=== PATIENT | male | born 1970 | race Caucasian/White ===

== ENCOUNTER 2017-06-22 11:27 | Day surgery (SDC) | payer OTHER ==
[2017-06-19 16:24] LABS: HEMATOCRIT 43.5 % (40.0-51.0); HEMOGLOBIN 14.3 g/dL (13.6-17.8)
[2017-06-19 16:38] LABS: BUN (BLOOD UREA NITROGEN) 16 MG/DL (6-23); CALCIUM, SERUM 8.7 MG/DL (8.5-10.4); CHLORIDE, SERUM 106 MMOL/L (96-112); CO2 (CARBON DIOXIDE) 30 MMOL/L (24-34); CREATININE 1.16 MG/DL (0.70-1.30); GFR AFRICAN AMERICAN 88 ML/MIN (>=60); GFR NON AFRICAN AMERICAN 76 ML/MIN (>=60); GLUCOSE, SERUM 77 MG/DL (60-99); POTASSIUM, SERUM 3.8 MMOL/L (3.5-5.3); SODIUM, SERUM 141 MMOL/L (135-148)
[~2017-06-22] VITALS: Ht 175.3 cm; Wt 89.8 kg
--- NOTE | ~2017-06-22 | OP ---
Record Of Operation [facility] [address] [place]. [address] NAME: TUTU GONZALEZ : 74 STATUS : [facility] UNIT#: [id number] AGE: 47 ADM/REG DATE : 06/22/17 MR#: [id number] REPORT SERV DATE: 06/22/17 DICTATED BY: DIONTE FISH JR. DATE: 06/22/17 REPORT STATUS : Draft TRANSCRIBED BY: NICOLAS DATE: 06/22/17 DATE OF PROCEDURE: ELECTROMECHANICAL ENGINEER: Megan Rehman. PROCEDURE: Anal fistulotomy with excision of anal polyp. PREOPERATIVE DIAGNOSIS: Recurrent anal fissure. POSTOPERATIVE DIAGNOSIS: Recurrent anal fissure. ANESTHESIA: General. INDICATIONS: The patient has had multiple anal procedures in the past he reveals with persistent pain and drainage. Examination under anesthesia with appropriate procedure is indicated. FINDINGS: With the patient in a prone amando-knife position, the anorectal area was examined. There was a fistulous tract extending to the 12 o'clock position that was straight into the anorectal area. There was also a polyp at the end of this. The tract was opened, it did involve the superficial fibers of the sphincter with a polyp at the end of this that was excised and the fistula was unroofed. No other significant findings were encountered. DESCRIPTION OF PROCEDURE: With adequate general anesthesia, the patient was placed in the prone amando-knife position. The rectum was dilated 4 fingerbreadths. The anoscope was introduced. The bladder findings. Rectal probe was placed through the external opening and this extended to the anorectal area where there was induration and a polyp. Polyp were excised and this was submitted to Pathology. The fistulous tract was opened with electrocautery and bleeding was controlled with electrocautery. Then, a Gelfoam pack was placed. The patient tolerated the procedure well and left the operating room in satisfactory condition. ESTIMATED BLOOD LOSS: 10 mL. VICENTA/NICOLAS Dionte Fish Jr., M.D. / [id number] CC: Mara Beatty Jr.
[~2017-06-22 11:27] MED LIST: AMIT10 PO; DSS PO; MINIPRESS2 MG PO; MOBIC7.5 PO; PROTONIX PO; ZOFRAN4 PO; ZOL100 PO
== END 2017-06-22 16:45 | disposition home or self-care (01) ==
LOC: SDC 11:27
PROVIDERS: Specialist
PROC: 0D8R0ZZ Division of Anal Sphincter, Open Approach (ICD-10-PCS; principal; 2017-06-22 12:45)
DX: K60.3 Anal fistula (principal); G47.33 Obstructive sleep apnea (adult) (pediatric); K21.9 Gastro-esophageal reflux disease without esophagitis; F43.10 Post-traumatic stress disorder, unspecified; Z79.899 Other long term (current) drug therapy; Z98.890 Other specified postprocedural states
CPT/HCPCS: 80048; 85014; 85018; 88304; 93005; J0690; J1170; J2250; J2405; J2710; J3010